=== PATIENT | female | born 1980 | race Caucasian/White ===

== ENCOUNTER → 2022-04-27 12:49 | Outpatient (CLI) | payer OTHER, SELFPAY ==
--- NOTE | ~2022-04-27 | MM_ITS ---
EXAMINATION: MM screening [facility] BI w ebony HISTORY: Screening mammogram TECHNIQUE: Craniocaudal and mediolateral oblique 3-D tomosynthesis images were obtained and synthetic 2-D images were generated. CAD analysis was submitted and interpreted. COMPARISON: No prior mammogram is available for comparison at this institution. BREAST PARENCHYMAL COMPOSITION: There are scattered areas of fibroglandular density. FINDINGS: There is no evidence of suspicious mass, calcification, or architectural distortion to sugg est malignancy in either breast. There has been no suspicious interval change. IMPRESSION: 1. No mammographic evidence of malignancy. 2. Recommend routine screening mammography in one year. BI-RADS Category 1: Negative Reviewed, dictated and finalized at location A.
--- NOTE | ~2022-04-27 | US_ITS ---
EXAMINATION: US transvaginal DATE: 04/27/2022 13:36 INDICATION: Pelvic pain Comparison: No prior studies for comparison. TECHNIQUE: Multiple endovaginal sonographic images of the pelvis performed. FINDINGS: The uterus measures 7.5 x 3.2 x 4.7 cm. There is a small uterine fibroid posteriorly to the right measuring 1 cm. The endometrial complex measures 4 mm. The right ovary measures 1.7 x 1.7 x 1.3 cm and the left ovary measures 2.2 x 1 x 1.4 cm. There are small follicles in each ovary. Normal doppler signal in both ovaries. There is no free fluid in the pelvis. There are no abnormal masses seen on either side. IMPRESSION: 1. Small 1 cm uterine fibroid. Otherwise, unremarkable pelvic ultrasound. Reviewed, dictated and finalized at location A.
== END ==
PROVIDERS: PCP Nurse Practitioner; Visit Provider Nurse Practitioner
DX: Z12.31 Encounter for screening mammogram for malignant neoplasm of breast (principal); R10.2 Pelvic and perineal pain; D25.9 Leiomyoma of uterus, unspecified
CPT/HCPCS: 76830; 77063; 77067

== ENCOUNTER 2022-11-19 12:21 | Emergency (ER) | payer BC, SELFPAY ==
[2022-11-19 13:13] VITALS: BP 140/90; PULSE 84; RESP 16; TEMP 36.7; O2SAT 100
--- NOTE | 2022-11-19 14:00 | ED.URI ---
HPI - URI/Sore Throat General Chief Complaint: Upper Respiratory Infection Stated Complaint: Sinus Time Seen by Provider: 11/19/22 14:00 Source: patient, RN notes reviewed and old records reviewed Mode of arrival: ambulatory Limitations: no limitations History of Present Illness HPI Narrative: 42-year-old female presents to the [facility] with complaints of sinus pressure for well over a week, worsening over the last 4 days. Related Data Home Medications Medication Instructions Recorded Confirmed atorvastatin 40 mg tablet 40 mg PO DAILY 11/19/22 11/19/22 duloxetine 60 mg capsule,delayed 60 mg PO DAILY 11/19/22 11/19/22 release norethindrone 1 mg-ethinyl 1 tablet PO DAILY 11/19/22 11/19/22 estradiol 20 mcg (24)-iron 75 mg (4) tablet (Blisovi 24 Fe) Allergies Allergy/AdvReac Type Severity Reaction Status Date / Time No Known Allergies Allergy Verified 11/19/22 14:05 Review of Systems Review of Systems: All systems reviewed & are unremarkable except as noted in HPI and below Constitutional: Constitutional: Reports no additional constitutional complaints Eyes: Eyes: Reports no additional eye complaints ENT: Reports as per HPI, Reports nasal congestion and Reports sore throat Cardiovascular: Cardiovascular: Reports no additional cardiovascular complaints, Denies chest pain and Denies dyspnea Respiratory: Respiratory: Reports no additional respiratory complaints, Denies chest congestion, Denies cough and Denies dyspnea Gastrointestinal: Gastrointestinal: Reports no additional gastrointestinal complaints, Denies abdominal pain, Denies nausea and Denies vomiting Musculoskeletal: Musculoskeletal: Reports no additional musculoskeletal complaints Integumentary/Breasts: Skin/Breast: Reports system reviewed and no additional complaints, except as docu Neurologic: Reports system reviewed and no additional complaints, except as documented Psychiatric: Psychiatric: Reports no additional psychiatric complaints Allergic/Immunologic: Allergic/Immunologic: Reports no additional allergic/immunologic complaints PMFSH Comments At the time of my signature, I reviewed and agree with the nursing past medical, surgical, social, and family history. There is no relevant family history pertinent to the patient complaint. Exam Const: General: cooperative, healthy appearing, comfortable, no acute distress, well developed, alert and well nourished Nutritional Appearance: well nourished Orientation/consciousness: patient oriented x3 Limitations: no limitations HENMT: Head: normal to inspection Ears: hearing grossly normal bilaterally and external ears normal Face/Nose/Sinus: Normal external nose present, Normal nares present, Abnormal mucous membranes and turbinates present boggy and erythematous, Nasal discharge present clear and normal facial exam Face and sinus: face symmetric and sinus tenderness frontal and maxillary Mouth: Yes Normal oral and palatal mucosa present, Yes lip normal and Yes moist mucous membranes Throat: posterior oropharynx normal and uvula midline Eyes: General: appearance normal, both eyes and all related structures Alignment and Position: alignment normal Periorbital: periorbital findings normal Conjunctivae: conjunctivae normal Pupils: Equal, round and reactive pupils present EOM: EOMs intact bilaterally Neck: Neck: normal visual inspection, full ROM, no lymphadenopathy and no meningeal signs Chest: Chest palpation & inspection: normal inspection of the chest Resp: Effort & Inspection: normal respiratory effort and able to speak in complete sentences Auscultation: clear to auscultation bilaterally, no crackles, no rales, no rhonchi and no wheezes Cardio: Rate: regular rate Rhythm: regular rhythm Back/Spine/Pelvis: Cervical Spine: cervical ROM normal Thoracic/Lumbar Spine: No thoracic spinal tenderness Skin: General skin exam: normal color and no rashes or lesions noted Lesions: no lesion
== END 2022-11-19 14:11 | disposition home or self-care (01) ==
PROVIDERS: Emergency Provider Nurse Practitioner; PCP Nurse Practitioner
DX: J01.40 Acute pansinusitis, unspecified (principal); E78.00 Pure hypercholesterolemia, unspecified
CPT/HCPCS: 99213; G0463

== ENCOUNTER → 2023-08-07 11:25 | Outpatient (CLI) | payer BC, SELFPAY ==
--- NOTE | ~2023-08-07 | MM_ITS ---
EXAMINATION: MM screening uriel BI w ebony HISTORY: Screening mammogram TECHNIQUE: Craniocaudal and mediolateral oblique 3-D tomosynthesis images were obtained and synthetic 2-D images were generated. CAD analysis was submitted and interpreted. COMPARISON: 01/2022 bilateral screening mammogram BREAST PARENCHYMAL COMPOSITION: The breasts are almost entirely fatty. FINDINGS: There is no evidence of suspicious mass, calcification, or architectural distortion to sugg est malignancy in either breast. There has been no suspicious interval change. IMPRESSION: 1. No mammographic evidence of malignancy. 2. Recommend routine screening mammography in one year. BI-RADS Category 1: Negative Reviewed, dictated and finalized at location A.
== END ==
PROVIDERS: PCP Nurse Practitioner; Visit Provider Nurse Practitioner
DX: Z12.31 Encounter for screening mammogram for malignant neoplasm of breast (principal)
CPT/HCPCS: 77063; 77067

== ENCOUNTER 2024-07-14 01:45 | Day surgery (SDC) | payer BC, SELFPAY ==
[2024-06-25 11:52] VITALS: BMI 44.1
[2024-07-14 07:05] VITALS: BP 150/102; PULSE 100; RESP 20; O2SAT 96; BMI 43.4
[2024-07-14] MEDS: LACTATED RINGERS 1,000 ML 150 ML IV CONT (07:15)
[2024-07-14 07:25] VITALS: BP 120/71
--- NOTE | 2024-07-14 07:51 | P.PNAN_ITS ---
Anes - Initial Pre Proc Eval Procedure: Operation Date: 07/14/24 08:30 Proposed Procedures p Screening Colonoscopy - Alexsander Joseph MD Date/Time: 07/14/24 07:51 Surgeon: Alexsander Joseph MD Pre Op Diagnosis: Neoplasm screening Patient Data Age: 44 Gender: F Height: 1.7 m Weight: 125.8 kg Last Vital Signs Pulse 100 07/14/24 07:05 Resp 20 07/14/24 07:05 BP 120/71 07/14/24 07:25 Pulse Ox 96 07/14/24 07:05 O2 Del Method Room Air 07/14/24 07:05 Allergies Allergy/AdvReac Type Severity Reaction Status Date / Time No Known Allergies Allergy Verified 07/14/24 07:01 Home Medications Medication Instructions Recorded Confirmed Type atorvastatin 40 mg tablet 40 mg PO DAILY 11/19/22 07/14/24 History duloxetine 60 mg capsule,delayed 60 mg PO DAILY 11/19/22 07/14/24 History release fluticasone propionate 50 2 spray intranasal DAILY #16 grams 11/19/22 07/14/24 Rx mcg/actuation nasal spray,suspension (Flonase Allergy Relief) norethindrone 1 mg-ethinyl 1 tablet PO DAILY 11/19/22 07/14/24 History estradiol 20 mcg (24)-iron 75 mg (4) tablet (Blisovi 24 Fe) cyclobenzaprine 10 mg tablet 20 mg PO HS 06/25/24 07/14/24 History benazepril 20 mg tablet 20 mg PO DAILY 07/14/24 07/14/24 History Patient hx anesthesia problems: none Family hx anesthesia problems: none Results Review: All pre-operative results and documents have been reviewed as part of the pre- operative evaluation. [facility] Social History Social History Smoking status: Never smoker Alcohol intake: never Substance use type: does not use Living arrangements: with family Spiritual care concerns: No Anes - Eval Final PreProcedure Day of Procedure 07/14/24 07:51 Patient weight: morbidly obese Heart: regular rate and rhythm Lungs: clear to auscultation Airway: Mallampati scale class III Neurological: alert and oriented Last oral intake: >/= 8 hours ASA classification: III Emergent: no Anesthetic plan: proceed Anesthesia type and monitoring: general GIVS and standard monitoring Results Review: All pre-operative results and documents have been reviewed as part of the pre- operative evaluation. Informed Consent: The patient's anesthetic plan and its attendant risks and benefits were discussed with the patient/family/POA. Questions were solicited and answers provided to the satisfaction of the patient/family/POA.
--- NOTE | 2024-07-14 07:56 | PM.HPGS ---
History of Present Illness History of Present Illness Consent: Risks, benefits, and alternatives have been discussed and questions answered. Patient agrees to proceed with procedure. Chief complaint: Neoplasm screening Narrative: Sydnee Ricketts is a 44 year old female here for first screening colonoscopy Review of Systems Review of Systems: All systems reviewed & are unremarkable except as noted in HPI and below PMFSH Past Medical History Medical History (Updated 07/14/24 @ 07:57 by Alexsander Joseph MD) Colon cancer screening Social History Social History Smoking status: Never smoker Alcohol intake: never Substance use type: does not use Living arrangements: with family Spiritual care concerns: No Meds Home Medications and Allergies Home Medications Medication Instructions Recorded Confirmed Type atorvastatin 40 mg tablet 40 mg PO DAILY 11/19/22 07/14/24 History duloxetine 60 mg capsule,delayed 60 mg PO DAILY 11/19/22 07/14/24 History release fluticasone propionate 50 2 spray intranasal DAILY #16 grams 11/19/22 07/14/24 Rx mcg/actuation nasal spray,suspension (Flonase Allergy Relief) norethindrone 1 mg-ethinyl 1 tablet PO DAILY 11/19/22 07/14/24 History estradiol 20 mcg (24)-iron 75 mg (4) tablet (Blisovi 24 Fe) cyclobenzaprine 10 mg tablet 20 mg PO HS 06/25/24 07/14/24 History benazepril 20 mg tablet 20 mg PO DAILY 07/14/24 07/14/24 History Allergies Allergy/AdvReac Type Severity Reaction Status Date / Time No Known Allergies Allergy Verified 07/14/24 07:01 Vital Signs Vital Signs - 24 hr 07/14/24 07:05 07/14/24 07:25 Pulse Rate 100 Respiratory Rate 20 Blood Pressure 150/102 H 120/71 Pulse Oximetry 96 Oxygen Delivery Room Air Exam Const: General: comfortable and no acute distress HENMT: Face/Nose/Sinus: Normal nares present Eyes: General: appearance normal, both eyes and all related structures Neck: Neck: no JVD Resp: Auscultation: clear to auscultation bilaterally Cardio: Rate: regular rate Rhythm: regular rhythm GI: Inspection: non-distended GI Palp: Yes Soft to palpation Skin: General skin exam: normal color Neuro: General: gait normal Speech: normal speech Extrem: General: normal to inspection Psych: Mental Status: mental status grossly normal Assessment and Plan Assessment and plan (1) Colon cancer screening: Code(s): Z12.11 - Encounter for screening for malignant neoplasm of colon Status: Acute Assessment and Plan: colonoscopy
[2024-07-14 08:20] LABS: BEDSIDEPREGUCG Negative
[2024-07-14 08:22] VITALS: BP 121/83; PULSE 86; RESP 20; O2SAT 98
[2024-07-14 08:32] VITALS: BP 131/86; PULSE 87; RESP 20; O2SAT 98
[2024-07-14 08:42] VITALS: BP 123/85; PULSE 87; RESP 20; O2SAT 100
== END 2024-07-14 08:50 | disposition home or self-care (01) ==
PROVIDERS: PCP Nurse Practitioner; Referring Provider Nurse Practitioner; Visit Provider Internal Medicine Gastroenterology
PROC: 0DJD8ZZ Inspection of Lower Intestinal Tract, Via Natural or Artificial Opening Endoscopic (ICD-10-PCS; CPT 45378; principal; 2024-07-14 08:30)
DX: Z12.11 Encounter for screening for malignant neoplasm of colon (principal); K64.8 Other hemorrhoids; E66.01 Morbid (severe) obesity due to excess calories; Z68.41 Body mass index [BMI] 40.0-44.9, adult
CPT/HCPCS: 45378; J7120

== ENCOUNTER 2024-08-10 10:29 | Outpatient (CLI) | payer BC, SELFPAY ==
--- NOTE | ~2024-08-10 | MM_ITS ---
EXAMINATION: MM screening uriel BI w ebony HISTORY: Screening mammogram TECHNIQUE: Craniocaudal and mediolateral oblique 3-D tomosynthesis images were obtained and synthetic 2-D images were generated. CAD analysis was submitted and interpreted. COMPARISON: 08/07/2023, 04/27/2022 BREAST PARENCHYMAL COMPOSITION:Not Dense. There are scattered areas of fibroglandular density. FINDINGS: No suspicious mass, calcification, or architectural distortion are identified in either denise ast to suggest malignancy. There has been no suspicious interval change. IMPRESSION: No mammographic evidence of malignancy. Recommend routine screening mammography in one year. BI-RADS Category 1: Negative Reviewed, dictated and finalized at location .
== END 2024-08-10 10:30 | disposition home or self-care (01) ==
LOC: MICIMG 10:30
PROVIDERS: PCP Obstetrics & Gynecology Gynecology; Visit Provider Obstetrics & Gynecology Gynecology
DX: Z12.31 Encounter for screening mammogram for malignant neoplasm of breast (principal)
CPT/HCPCS: 77063; 77067

== ENCOUNTER 2024-10-29 16:34 | Emergency (ER) | payer BC, SELFPAY ==
--- NOTE | 2024-10-29 16:36 | ED.URI ---
HPI - URI/Sore Throat General Chief Complaint: Upper Respiratory Infection Stated Complaint: cough,congestion Time Seen by Provider: 10/29/24 16:36 Source: patient Mode of arrival: ambulatory Limitations: no limitations History of Present Illness HPI Narrative: Sydnee is a 44-year-old female patient presenting to the clinic today with complaints of cough and congestion. She reports she has had the symptoms for approximately 7 weeks. Was seen by [facility] doctor and was given Augmentin and Tessalon Perles for a sinus infection/cough. Saw her PCP today and they refused to give her any cough medicine. She denies any shortness of breath but is having coughing fits. She reports this sinus pressure is improved but still is having the cough the cough is productive at times with white phlegm. She denies any fevers, chills, body aches. MD elicited complaint: cough and nasal congestion Related Data Home Medications Medication Instructions Recorded Confirmed atorvastatin 40 mg tablet 40 mg PO DAILY 11/19/22 10/29/24 duloxetine 60 mg capsule,delayed 60 mg PO DAILY 11/19/22 10/29/24 release norethindrone 1 mg-ethinyl 1 tablet PO DAILY 11/19/22 10/29/24 estradiol 20 mcg (24)-iron 75 mg (4) tablet (Blisovi 24 Fe) cyclobenzaprine 10 mg tablet 20 mg PO HS 06/25/24 10/29/24 benazepril 20 mg tablet 20 mg PO DAILY 07/14/24 10/29/24 amoxicillin 875 mg-potassium 1 tablet PO BID 10/29/24 10/29/24 clavulanate 125 mg tablet benzonatate 200 mg capsule 200 mg PO TID 10/29/24 10/29/24 Allergies Allergy/AdvReac Type Severity Reaction Status Date / Time No Known Allergies Allergy Verified 10/29/24 16:43 Review of Systems Review of Systems: Pertinent positives per HPI. Patient denies any fever, chills, rash, headache, visual changes, dizziness,shortness of breath, chest pain, palpitations, nausea, vomiting, diarrhea, constipation, abdominal pain, or any urinary issues. PMF Past Medical History Medical History Colon cancer screening Social History Social History (Reviewed 10/29/24 @ 16:59 by NACHO Torres Smoking status: Never smoker Alcohol intake: never Substance use type: does not use Living arrangements: with family Spiritual care concerns: No Comments At the time of my signature, I reviewed and agree with the nursing past medical, surgical, social, and family history. There is no relevant family history pertinent to the patient complaint. Exam Narrative: General: Well-developed, well nourished, in no apparent distress Head: Normocephalic, atraumatic Eyes: Pupils equally round and reactive to light bilaterally, EOM intact, sclera and conjunctive clear, no discharge, lids normal Ears: TMs intact and clear, ear canals clear, no drainage, grossly hearing normal. Nose: Nares patent, clear nasal discharge, no inflammation, no sinus tenderness. Mouth: Oral pharynx without lesions or masses, good dentition, MMM. Neck: Supple, trachea midline, no enlargement of anterior or posterior cervical nodes, no thyroid masses or goiter palpable. Cardio: Regular rate and rhythm, s1 and s2 normal, no murmur appreciated. Resp: Diminished lung sounds in the bases otherwise clear, no rhonchi, rales, wheezing or rubs Course Course Emergency Course: Portions of this record may have been created with voice recognition software. Level of Care: Express Care Visit Vital Signs Vital signs: Vital signs reviewed MDM - URI/Sore Throat MDM Narrative Medical decision making narrative: At the time of visit patient is resting comfortably on the exam table. Patient appears to be nontoxic. Plan: I suspect patient has bronchitis. Prescription for prednisone and albuterol inhaler was sent to the pharmacy. Patient is already taking Augmentin and Tessalon Perles. Supportive measures were discussed with the patient and they voiced understanding discharge instructions and agrees to treatment plan. Return precautions reviewed Differential Diagnosis Differential diagnosis: Likely upper respiratory infection, otitis media, sinusitis, viral infection, bronchitis, influenza, pharyngitis and other (COVID) Discharge Plan Discharge Clinical Impression: Bronchitis Patient Disposition: Home, Self-Care Condition: Stable Instructions: Antibiotic Form, Acute Bronchitis (ED) Additional Instructions: Continue current medications as prescribed Take prescription medications only as prescribed-prednisone and albuterol inhaler May take Mucinex during the daytime and Tessalon Perles or Delsym at night to help you sleep Keep head of bed elevated Cool-mist humidifier at the bedside Increase fluids and stay well hydrated Tylenol/motrin for pain/fever Flonase and OTC antihistamines as directed Vicks vapor rub to open sinuses Sinus rinses for congestion Cepacol spray, cough drops, throat lozenges, warm tea with honey/lemon, gargle salt water to soothe throat BRAT diet for diarrhea Clear liquids x 24 hours then advance as tolerated for nausea/vomiting Go to the ED if you develop a worsening in your condition- high fever not controlled by Tylenol or Motrin, dehydration, weakness, lethargy, shortness of breath, or chest pain. Follow up with your PCP in 3-5 days if symptoms persist. Prescriptions: New albuterol sulfate 90 mcg/actuation HFA aerosol inhaler 2 puff inhalation Q4-6H PRN (Reason: shortness of breath or wheezing) 30 Days Qty: 8.5 0RF prednisone 20 mg tablet 40 mg PO DAILY 5 Days Qty: 10 0RF No Action atorvastatin 40 mg tablet 40 mg PO DAILY duloxetine 60 mg capsule,delayed release(DR/EC) 60 mg PO DAILY Blisovi 24 Fe 1 mg-20 mcg (24)/75 mg (4) tablet 1 tablet PO DAILY fluticasone propionate [Flonase Allergy Relief] 50 mcg/actuation spray,suspension 2 spray intranasal DAILY Qty: 16 0RF Rx Instructions: administer into each nostril benzonatate 200 mg capsule 200 mg PO TID amoxicillin-pot clavulanate 875-125 mg tablet 1 tablet PO BID cyclobenzaprine 10 mg Tablet 20 mg PO HS benazepril 20 mg tablet 20 mg PO DAILY Follow-up/Referrals: PHYSICIAN,INSTRUCTOR WATCH ASSEMBLY [Primary Care Provider] - Time of Disposition: 16:56 Quality NIHSS Nursing Documentation ED NIHSS nursing documentation: reviewed/agree
[2024-10-29 16:46] VITALS: BP 121/80; PULSE 75; RESP 16; TEMP 36.4; O2SAT 99
== END 2024-10-29 17:05 | disposition home or self-care (01) ==
PROVIDERS: Emergency Provider Nurse Practitioner Family
DX: J40 Bronchitis, not specified as acute or chronic (principal)
CPT/HCPCS: 99213; G0463

== ENCOUNTER 2025-10-06 14:21 | Outpatient (CLI) | payer OTHER, SELFPAY ==
--- NOTE | ~2025-10-06 | MM_ITS ---
EXAMINATION: MM screening [facility] BI w ebony HISTORY: Screening TECHNIQUE: Craniocaudal and mediolateral oblique 3-D tomosynthesis images were obtained and synthetic 2-D images were generated. CAD analysis was submitted and interpreted. COMPARISON: Comparison to multiple prior studies sequentially, with oldest reviewed study dated 04/27/2022. BREAST PARENCHYMAL COMPOSITION: Not dense: There are scattered areas of fibroglandular density. FINDINGS: There is no evidence of suspicious mass, calcification, or architectural distortion to suggest malignancy in either breast. There has been no suspicious interval change. IMPRESSION: 1. No mammographic evidence of malignancy. 2. Recommend routine screening mammography in one year. BI-RADS Category 1: Negative Reviewed, dictated and finalized at location B. [employer]
== END 2025-10-06 14:22 | disposition home or self-care (01) ==
LOC: MICIMG 14:22
PROVIDERS: PCP Nurse Practitioner; Visit Provider Nurse Practitioner
DX: Z12.31 Encounter for screening mammogram for malignant neoplasm of breast (principal)
CPT/HCPCS: 77063; 77067